=== PATIENT | female | born 1960 | race Caucasian/White ===

== ENCOUNTER 2019-12-25 08:00 | Outpatient (CLI) | payer OTHER | END 2019-12-25 23:59 | disposition home or self-care (01) | LOC: LAB 08:00 | PROVIDERS: ATTEND Specialist | DX: Z01.812 Encounter for preprocedural laboratory examination (principal); Z20.828 Contact with and (suspected) exposure to other viral communicable diseases | CPT/HCPCS: 87426; C9803 ==

== ENCOUNTER 2019-12-28 05:05 | Inpatient (IN) | payer OTHER ==
[~2019-12-28] VITALS: Ht 160 cm; Wt 108.9 kg
[2019-12-28 05:15] VITALS: BP 125/76
--- NOTE | 2019-12-28 05:15 | NUR ---
DAY SURGERY, PATIENT AMBULATORY AND WALKED TO THE [facility]LOOR, AWAKE, ALERT X3, NO PAIN REPORTED. CALM AND COOPERATIVE, DR. HOWARD IS THE SURGEON FOR RIGHT TOTAL KNEE ARTHROPLASTY.ROOM ORIENTATION PROVIDED, ABLE TO WALK TO BATHROOM. MEDICATION LIST TO FOLLOW.
[2019-12-28 05:46] VITALS: BP 125/76
[2019-12-28] MEDS ORDERED: ANESTHESIA TRAY IN PYXIS 1 EA TRAY MC ONE (05:46)
[2019-12-28] MEDS ORDERED: BUPIVACAINE 0.5 % PF 150 MG/30 ML VIAL ONE (05:47)
[2019-12-28] MEDS ORDERED: BUPIVACAINE MPF 0.5% W/EPI INJ 30 ML VIAL ONE (05:47)
[2019-12-28] MEDS ORDERED: BACITRACIN 50000 UNITS/VIAL ONE (05:47)
--- NOTE | 2019-12-28 06:06 | NUR ---
PATIENT WAS BROUGHT TO OPERATING ROOM WHEELED VIA BED BY ÓSCAR SHEEHAN AND OR ATTENDANT, BELONGINGS CHECKED AND KEPT AT BEDSIDE, PATIENT CONSENT WAS SIGNED, VITAL SIGNS CHECK, REPORTED UNABLE TO START IV BUT WILL START BY OR. ADMISSION STARTED AND COMPLETED. MRSA SWAB DONE, TYPE AND SCREEN DONE. SAFETY MEASURES PROVIDED. EDUCATED ON PROCEDURE NPO PER MD ORDER.
[2019-12-28] MEDS ORDERED: FENTANYL PF 100MCG/2ML AMPUL ONE (06:11)
[2019-12-28] MEDS ORDERED: SCOPOLAMINE HBR 1 EA PATCH.TD72 TD ONE (06:11)
[2019-12-28] MEDS ORDERED: MIDAZOLAM HCL 2 MG/2ML VIAL ONE (06:11)
[2019-12-28] MEDS ORDERED: CLINDAMYCIN 900 MG/6 ML VIAL ONE (06:17)
[2019-12-28] MEDS ORDERED: TRANEXAMIC ACID 3,000 MG in SODIUM CHLORIDE IRRIG SOLUTION 70 ML IR ONE (07:00)
[2019-12-28] MEDS ORDERED: HYDROCODONE/APAP 5/325MG TABLET PO PRN (09:30)
[2019-12-28] MEDS ORDERED: SENNOSIDES 8.6 MG TABLET PO PRN (10:00)
[2019-12-28] MEDS ORDERED: ZOLPIDEM TARTRATE 5 MG TABLET PO PRN (10:00)
[2019-12-28] MEDS ORDERED: DOCUSATE SODIUM 250 MG CAPSULE PO PRN (10:00)
[2019-12-28] MEDS ORDERED: BISACODYL SUPP (10 MG) 10 MG/SUPP.RECT SUPP.RECT RC PRN (10:00)
[2019-12-28] MEDS ORDERED: ACETAMINOPHEN 325 MG TABLET PO PRN (10:00)
[2019-12-28] MEDS ORDERED: ONDANSETRON HCL/PF 4 MG/2 ML VIAL IVP PRN (10:00)
--- NOTE | 2019-12-28 10:02 | NUR ---
MS RN NOTES PATIENT RECEIVED FROM LAB SPECIALIST. PATIENT IN BED RESTING COMFORTABLY WITH NO APPARENT DISTRESS PRESENT AT THIS TIME. ALERT AND ORIENTED X 4. ON ROOM AIR, O2 SATURATION AT 96%, WITH EVEN NON-LABORED BREATHING, WITH NO RESPIRATORY DISTRESS PRESENT AT THIS TIME, AND NO SOB NOTED. PATIENT SKIN WARM AND DRY TO TOUCH. RIGHT KNEE WRAPPED AND IMMOBILIZER IN PLACE. IV ACCESS INTACT AND PATENT ON RIGHT HAND, 20 GAUGE. SAFETY PRECAUTIONS IMPLEMENTED WITH BED LOCKED, BED IN THE LOWEST POSITION, BILATERAL SIDE RAILS UP, AND CALL LIGHT WITHIN EASY REACH OF THE PATIENT. WILL CARRY OUT ORDERS FROM DR. HOWARD AND CONTINUE TO MONITOR PATIENT.
[2019-12-28 10:15] VITALS: BP 124/66
[2019-12-28] MEDS ORDERED: oxyCODONE IR immediate release 5 MG PO ONE (10:51)
[2019-12-28] MEDS ORDERED: diphenhydrAMINE HCL 25 MG CAPSULE PO PRN (11:00)
[2019-12-28] MEDS ORDERED: MAGNESIUM HYDROXIDE 30 ML UDC PO PRN (11:00)
[2019-12-28] MEDS ORDERED: CLONIDINE HCL 0.1 MG TABLET PO PRN (11:00)
[2019-12-28] MEDS ORDERED: MAG HYDROX/AL HYDROX/SIMETH 30 ML UDC PO PRN (11:00)
[2019-12-28] MEDS ORDERED: oxyCODONE IR immediate release 5 MG PO PRN (11:00)
[2019-12-28] MEDS ORDERED: HYDROMORPHONE 1 MG/1 ML DISP.SYRIN IV PRN (11:00)
[2019-12-28] MEDS ORDERED: ONDANSETRON HCL/PF 4 MG/2 ML VIAL IV PRN (11:00)
[2019-12-28] MEDS: IV D5/0.45 NACL 1,000 ML IV PRN (11:19)
[2019-12-28] MEDS: CLINDAMYCIN 900 MG in IV D5W 50 ML IV SCH ×2 (13:00→18:06)
[2019-12-28] MEDS: DRONABINOL (2.5 MG) 2.5 MG CAPSULE PO SCH ×2 (13:00→18:48)
--- NOTE | 2019-12-28 14:30 | NUR ---
MS RN NOTES PATIENT SEEN BY PHYSICAL THERAPY, INFORMED PATIENT NEEDS CPM 4-6HRS DAILY. WILL CONTINUE TO MONITOR PATIENT.
[2019-12-28] MEDS: oxyCODONE IR immediate release 5 MG PO PRN ×2 (14:40→21:34)
[2019-12-28 16:00] VITALS: BP 115/68
[2019-12-28] MEDS: DOCUSATE SODIUM 100 MG CAPSULE PO SCH (16:28)
[2019-12-28] MEDS ORDERED: APRE30TA2 PO (17:24)
[2019-12-28] MEDS ORDERED: SERT100T12 PO (17:24)
[2019-12-28] MEDS ORDERED: MONT10TA22 PO (17:24)
[2019-12-28] MEDS ORDERED: LIRA3PEN SQ (17:24)
[2019-12-28] MEDS ORDERED: ROSU10TA29 PO (17:24)
--- NOTE | 2019-12-28 19:18 | NUR ---
MS RN NOTES PATIENT IN BED RESTING COMFORTABLY WITH CPM IN PLACE DUE PATIENT STATING IT FEELS GOOD AND HELPS HER RELAX. PATIENT ALERT AND ORIENTED X4. ON ROOM AIR WITH NO SIGNS OF RESPIRATORY DISTRESS PRESENT, WITH NON-LABORED AND EVEN BREATHING, AND NO SOB NOTED AT THIS TIME, WITH SPO2 MONITOR AT 96%. PICKENS CATHETER IN PLACE. PATIENT DRESSING INTACT ON RIGHT LEG. IV ACCESS INTACT AND PATENT CURRENTLY INFUSING IV FLUIDS D5 1/2 NS, AT 125ml/hr. MET ALL OF PATIENT'S NEEDS. SAFETY PRECAUTIONS IMPLEMENTED WITH BED LOCKED, BED IN THE LOWEST POSITION, BILATERAL SIDE RAILS UP, AND CALL LIGHT WITHIN EASY REACH OF THE PATIENT. WILL ENDORSE PLAN OF CARE TO RN.
[2019-12-28 20:00] VITALS: BP 95/86
--- NOTE | 2019-12-28 20:00 | NUR ---
MS/RN OPENING NOTES RECEIVED PATIENT IN BED, AWAKE, ALERT X3, REPORTED SEVERE PAIN IN SURGICAL SITE OF 8 TO 9 LEVEL, PROVIDED WATER TO DRINK KEEP OXYGENATION LEVEL MONITOR FOR ANY CHANGES, RESPIRATIONS EVEN AND UNLABORED, SKIN WARM TO TOUCH, DILAUDID 0.5 ML TO GIVE PER MD FOR PAIN FOR SEVERE, BLOOD PRESSURE ABOVE SBP 100. BED LOCKED, USES SPIROMETER.
[2019-12-28] MEDS ORDERED: ENOXAPARIN SODIUM 40 MG/0.4 ML DISP.SYRIN SQ SCH (21:00)
[2019-12-28] MEDS: FAMOTIDINE (20 MG) 20 MG TABLET PO SCH (21:19)
--- NOTE | 2019-12-28 21:27 | NUR ---
MS/RN OPENING NOTES PATIENT IN BED, AWAKE, OXYGENATION IN ROOM AIR AT 98%, REPORTED PAIN IN RIGHT KNEE INCISION SITE, APPLIED COOLING PACKS, PROVIDED FLUIDS, NEEDED MEDICATION PO TO GIVE OXY IR, PATIENT ALERT, ORIENTED X4. TO MONITOR. SBP IN 95. ASKED TO DRINK FLUIDS, DISCUSSED PAIN MANAGEMENT AND SIDE EFFECTS, ALSO CONSTIPATION SAID VERBALIZE UNDERSTANDING AND HAD COLACE EARLIER,
--- NOTE | 2019-12-28 23:10 | NUR ---
MS/RN NOTES PATIENT RESTING IN BED, HAD PO MEDICATION OXY IR 10 EARLIER AND WHEN ASKED HOW MUCH PAIN SAID IT IS STILL IN 7, OFFERED OXY 5 MG, NO NAUSEA AND PROVIDED SNACKS TOLERATED WELL, SBP IN 95, FLUID ABLE TO DRINK APPLE JUICE AND CUP OF ICE WATER , TO MONITOR AFTER AN HOUR FOR PAIN RELIEF.
[2019-12-29] MEDS: CLINDAMYCIN 900 MG in IV D5W 50 ML IV SCH (00:10)
--- NOTE | 2019-12-29 00:21 | NUR ---
MS/RN NOTES PATIENT AWAKEN FROM SLEEP REPORTED PAIN IMPROVE BUT SCALE OF 7/10, PROVIDED FLUIDS, IV ANTIBIOTIC INFUSING, BLOOD PRESSURE CHECK SBP ABOVE 100, ALERT, ORIENTED, PREFER PAIN MEDICATION OXY IR 10 FOR PAIN LEVEL OF 7/10, NEXT DUE IN FEW MORE MINUTES.
[2019-12-29] MEDS: oxyCODONE IR immediate release 5 MG PO PRN ×5 (00:44→18:37)
[2019-12-29] MEDS: DRONABINOL (2.5 MG) 2.5 MG CAPSULE PO SCH ×3 (03:00→21:07)
[2019-12-29] MEDS: IV D5/0.45 NACL 1,000 ML IV PRN (03:40)
--- NOTE | 2019-12-29 03:57 | NUR ---
MS/RN NOTES PATIENT AWAKEN FROM SLEEP REFUSED MARINOL SCHEDULED PATIENT NO REPORTED N/V AND REPORTED HAVING MODERATE PAIN 7/10, NEEDED OXY IR 10 PO GIVEN, SBP OVER 120. TO MONITOR.
[2019-12-29 06:28] LABS: BASOPHILS % (AUTO) 0.1 % (0.0-2.0); EOSINOPHILS % (AUTO) 0.3 % (0.0-6.0); HEMATOCRIT 34 % (33-45); HEMOGLOBIN 11.4 g/dL (11.5-14.8); LYMPHOCYTES # (AUTO) 1.9 /CMM (0.8-4.8); LYMPHOCYTES % (AUTO) 20.7 % (20.0-44.0); MEAN CORPUSCULAR HGB CONC 33 g/dl (31.0-36.0); MEAN CORPUSCULAR VOLUME 86 fL (82-100); MONOCYTES # (AUTO) 0.6 /CMM (0.1-1.30); MONOCYTES % (AUTO) 6.8 % (2.0-12.0); NEUTROPHILS # (AUTO) 6.7 /CMM (1.8-8.9); NEUTROPHILS % (AUTO) 72.1 % (43.0-81.0); PLATELET COUNT (AUTO) 191 /CMM (150-450); RED BLOOD CELL COUNT(AUTO) 4.01 MIL/uL (4.0-5.2); WHITE BLOOD COUNT (AUTO) 9.3 K/uL (4.3-11.0)
--- NOTE | 2019-12-29 06:56 | NUR ---
316-1 MS/RN NOTES ATTENDED ALL NEEDS, KEPT COMFORTABLE, ON PAIN MONITORING AND MANAGEMENT, RIGHT KNEE SITE INCISION DRY AND INTACT. BED LOCKED, PICKENS CATHETER DRAINING MODERATE AMOUNT OF URINE. PREFER ORAL PAIN MEDICATION , PATIENT ALERT, ORIENTED, ABLE TO SLEEP FEW HOURS,WILL ENDORSE TO AM RN FOR ROSALINO.
[2019-12-29 06:59] LABS: CALCIUM, SERUM 8.1 mg/dL (8.5-10.1); CREATININE 0.8 mg/dL (0.6-1.3); MAGNESIUM 1.9 mg/dL (1.8-2.4); PHOSPHORUS 3.1 mg/dL (2.5-4.9); POTASSIUM 3.9 mmol/L (3.5-5.1)
--- NOTE | 2019-12-29 07:30 | NUR ---
RN Opening Note Received patient in bed, AO x 4, able to responds all stimuli. Pt does no c/o pain or any discomfort, skin is warm to touch, kept clean/dry, intact IV site running 1/2 NS 125ml/hr. Respiratory even and unlabored on room air,o2sat 96%, no distress observed. Keep bed in locked with elevated HOB for ensure air and aspiration precaution, call light within reach, will continue to monitor.
[2019-12-29 08:26] VITALS: BP 94/57
[2019-12-29] MEDS: DOCUSATE SODIUM 100 MG CAPSULE PO SCH ×2 (08:32→16:10)
[2019-12-29] MEDS: ASPIRIN 325 MG TABLET PO SCH (08:32)
[2019-12-29] MEDS: FAMOTIDINE (20 MG) 20 MG TABLET PO SCH ×2 (08:32→21:07)
[2019-12-29] MEDS ORDERED: oxyCODONE IR immediate release 5 MG PO PRN (10:00)
[2019-12-29] MEDS ORDERED: oxyCODONE IR immediate release 5 MG PO ONE (10:00)
[2019-12-29] MEDS: SENNOSIDES 8.6 MG TABLET PO SCH (16:10)
[2019-12-29 16:11] VITALS: BP 115/67
--- NOTE | 2019-12-29 18:44 | NUR ---
RN Closing Note Patient is bed resting, remains AO x 4, given pain med for post orthoplasty around 1830 and no further right knee pain at this time. Skin is warm to touch, keep clean/dry, intact IV site, patient stable stand up with assist. Respiratory even and unlabored on room air. Call light within reach, will endorse child nutrition manager.
--- NOTE | 2019-12-29 19:14 | NUR ---
MS RN NOTES PATIENT IN BED, AWAKE, ALERT AND ORIENTED X 4. BREATHING EVEN AND UNLABORED ON ROOM AIR. SHOWS NO SIGNS OF ACUTE RESPIRATORY DISTRESS. NO ACUTE PAIN. ENCOURAGE AND DID PT TEACHING ON IS. R KNEE IMMOBILIZER ON WITH SKIN WARM TO TOUCH AND NO S/S OF POOR CIRCULATION. IV ON R WRIST 20G ITS CLEAN DRY AND INTACT. SHOWS NO SIGNS OF INFILTRATION, NO REDNESS. SAFETY PRECAUTION IN PLACE. BED IN LOWEST POSITION, LOCKED, AND CALL LIGHT KEPT WITHIN REACH. WILL CONTINUE TO MONITOR.
[2019-12-29 20:00] VITALS: BP 111/55
[2019-12-29 20:44] VITALS: BP 111/55
--- NOTE | 2019-12-29 22:12 | NUR ---
MS RN NOTES PER MD FOR DVT PROPHYLASIS, DR. HOWARD ORDERED DAILY FULL- STRENGTH ASPIRIN 326MG. LOVENOX BEEN D/C. WILL CONTINUE TO MONITOR.
[2019-12-30] MEDS: oxyCODONE IR immediate release 5 MG PO PRN ×3 (02:57→10:46)
--- NOTE | 2019-12-30 02:58 | NUR ---
MS RN NOTES PATIENT COMPLAINING OF PAIN 11/19. GIVEN PRN OXY IR, VITAL SIGNS WNL. WILL CONTINUE TO MONITOR.
[2019-12-30] MEDS: DRONABINOL (2.5 MG) 2.5 MG CAPSULE PO SCH (06:05)
--- NOTE | 2019-12-30 06:35 | NUR ---
MS RN NOTES PATIENT IN BED, ASLEEP, ALERT AND ORIENTED X 4. BREATHING EVEN AND UNLABORED ON ROOM AIR. SHOWS NO SIGNS OF ACUTE RESPIRATORY DISTRESS. NO ACUTE PAIN. PT USED INCENTIVE SPIROMETER THROUGHOUT SHIFT. R KNEE IMMOBILIZER ON WITH SKIN WARM TO TOUCH AND NO S/S OF POOR CIRCULATION. IV ON R WRIST 20G ITS CLEAN DRY AND INTACT. SHOWS NO SIGNS OF INFILTRATION, NO REDNESS. ALL DUE MEDICATIONS GIVEN. SAFETY PRECAUTION IN PLACE. BED IN LOWEST POSITION, LOCKED, AND CALL LIGHT KEPT WITHIN REACH. WILL ENDORSE TO ONCOMING NURSE.
--- NOTE | 2019-12-30 07:07 | NUR ---
MS RN NOTES PATIENT COMPLAINING OF PAIN 11/19, PT REQUESTED NORCO GIVEN PRN NORCO 15MG. VITAL SIGNS WNL. WILL ENDORSE TO ONCOMING NURSE.
--- NOTE | 2019-12-30 07:39 | NUR ---
RN OPENING NOTE Patient is resting in bed, A/O x4, showing no signs of acute distress or SOB, stable on RA. IV line in the right wrist #20g is clean and intact flushing well. Right knee dressed in urban bandage and immobilizer in place. Patient c/o 8/10 throbbing pain in right knee, pain medication given by button cutter RN. Spoke with Dr. Arzola over the phone and gave an update on the patient. Bed is in lowest position, side rails x3 in upright position, call light is within reach, fall safety and aspiration precautions enforced. Will continue to monitor.
[2019-12-30 08:00] VITALS: BP 110/65
[2019-12-30] MEDS: ASPIRIN 325 MG TABLET PO SCH (08:26)
[2019-12-30] MEDS: DOCUSATE SODIUM 100 MG CAPSULE PO SCH (08:26)
[2019-12-30] MEDS: SENNOSIDES 8.6 MG TABLET PO SCH (08:26)
[2019-12-30] MEDS: FAMOTIDINE (20 MG) 20 MG TABLET PO SCH (08:26)
--- NOTE | 2019-12-30 13:41 | NUR ---
CABLE MECHANIC NOTE Patient is medically cleared for discharge. Patient is A/O x4, showing no signs of acute distress or SOB, stable on RA. VS WNL. Patient cleared by PT, Dr. Arzola, and Lul Morris came to see the patient and changed post-op dressings and cleared patient for DC; knee immobilizer in place. Patient has prescribed pain medication, VTE prophylaxis and CPM machine ready at home. DC instructions provided and patient verbalized understanding. All patient needs met, all due medications given, patient kept clean and dry throughout shift. Patient is leaving with walker. Patient picked up by son en route to home via private car.
== END 2019-12-30 13:33 | disposition home or self-care (01) | DRG 470 ==
LOC: DS 05:05 → MEDSG1 05:07 → MED 05:15
PROVIDERS: ADMIT Hospitalist; ATTEND Hospitalist
PROC: 0SRC0J9 Replacement of Right Knee Joint with Synthetic Substitute, Cemented, Open Approach (ICD-10-PCS; principal; 2019-12-28)
DX: M17.11 Unilateral primary osteoarthritis, right knee (principal); Z68.41 Body mass index [BMI] 40.0-44.9, adult; E66.01 Morbid (severe) obesity due to excess calories; F17.200 Nicotine dependence, unspecified, uncomplicated; F12.90 Cannabis use, unspecified, uncomplicated; Z71.3 Dietary counseling and surveillance; Z71.6 Tobacco abuse counseling; K59.00 Constipation, unspecified
CPT/HCPCS: 36415; 80048-TC; 80061-TC; 83735-TC; 84100-TC; 85025-TC; 85730-TC; 86850-TC; 87081-TC; 88305-TC; 88311-TC; 97110-TC; 97116-TC; 97530-TC; 97760-TC; A4217; C1713; C1776; G0378; J1100; J1170; J1650; J2250; J2405; J2704; J3010; J3490; J7060; L1830; Q0167